=== PATIENT | male | born 1960 | race Two or more races ===

== ENCOUNTER 2024-04-26 18:06 | Emergency (ER) | payer MEDICAID, OTHER ==
[~2024-04-26] VITALS: Ht 172.7 cm; Wt 58.0 kg
[2024-04-26 18:19] VITALS: BP 128/92; RESP 20; O2SAT 98
--- NOTE | 2024-04-26 18:39 | ED.PDOC ---
SOB-HPI HPI Comments 63 y/o M with PMHX of colorectal cancer, HTN, and HLD presents to the ED for CC of shortness of breath. Per patient he has been experiencing episodes of shortness of breath with a non-productive cough x1week. Patient relays, chest pain with deep breaths with associated symptoms of nausea and vomiting. Patient states that he has completed chemotherapy for his colorectal cancer and that it is currently "taking everything out of him". Patient denies fever, chills, body aches, or headache. No other symptoms or modifying factors at this time. Chief Complaint: Shortness of Breath Time Seen by MD: 18:30 Primary Care Provider: YOLANDA Reviewed notes: Nurses Notes, Medications, Allergies Information Source: Patient Mode of Arrival: Wheelchair Severity: Moderate Timing: Weeks Duration: Since onset Context: At Rest PE Risk Factors: None History of: None Prehospital treatment: None Modifying Factors: Nothing Associated Signs and Symptoms: Cough If cough with SOB: Non-Productive Past Medical History PAST MEDICAL HISTORY: Cancer Past Medical History (Other): colorectal cancer Surgical History: Denies all surgeries Family History Family History: Unknown Social History Smoker: Non-Smoker Alcohol: Denies ETOH Use Drugs: Marijuana Lives In: Home Constitutional: reports: weakness; denies: chills, diaphoresis, fatigue, fever, malaise, sweats, others EENTM: denies: blurred vision, double vision, ear bleeding, ear discharge, ear drainage, ear pain, ear ringing, eye pain, eye redness, hearing loss, mouth pain , mouth swelling, nasal discharge, nose bleeding, nose congestion, nose pain, photophobia, tearing, throat pain, throat swelling, voice changes, others Respiratory: reports: cough, shortness of breath; denies: hemoptysis, orthopnea, SOB at rest, SOB with excertion, stridor, wheezing, others Cardiovascular: denies: chest pain, dizzy spells, diaphoresis, Dyspnea on exertion, edema, irregular heart beat, left arm pain, lightheadedness, palpitations, PND, syncope, others Gastrointestinal: reports: nausea, vomiting; denies: abdomen distended, abdominal pain, blood streaked bowels, constipated, diarrhea, dysphagia, d ifficulty swallowing, hematemesis, melena, poor appetite, poor fluid intake, rectal bleeding, rectal pain, others Genitourinary: denies: burning, dysuria, flank pain, frequency, hematuria, incontinence, penile discharge, penile sore, pain, testicle pain, testicle swelling, urgency, others Neurological: denies: dizziness, fainting, headache, left sided numbness, left sided weakness, numbness, paresthesia, pre-existing deficit, right sided numbness, right sided weakness, seizure, speech problems, tingling, tremors, weakness, others Musculoskeletal: denies: back pain, gout, joint pain, joint swelling, muscle pain, muscle stiffness, neck pain, others Integumetry: denies: bruises, change in color, change in hair/nails, dryness, laceration, lesions, lumps, rash, wounds, others Allergic/Immunocompromised: denies: Difficulty Healing, Frequent Infections, Hives, Itching, others Hematologic/Lymphatic: denies: anemia, blood clots, easy bleeding, easy bruising, swollen glands, others Endocrine: denies: excessive hunger, excessive sweating, excessive thirst, excessive urination, flushing, intolerance to cold, intolerance to heat, unexplained weight gain, unexplained weight loss, others Psychiatric: denies: anxiety, bipolar disorder, depression, hopeless, panic disorder, schizophrenia, sleepless, suicidal, others All Other Systems: Reviewed and Negative Physical Exam General Appearance: Cachectic, Moderate Distress HEENT: Normal ENT Inspection, Pharynx Normal, TMs Normal Neck: Full Range of Motion, Non-Tender, Normal, Normal Inspection Respiratory: Chest Non-Tender, Decreased Breath Sounds, No Accessory Muscle Use, Normal Breath Sounds Cardiovascular: No Edema, No JVD, No Murmur, No Gallop, Tachycardia Breast Exam: Deferred Gastrointestinal: No Organomegaly, Non Tender, No Pulsatile Mass, Normal Bowel Sounds, Soft Genitalia: Deferred Pelvic: Deferred Rectal: Deferred Extremities: No calf tenderness, Normal capillary refill, Normal inspection, Normal range of motion, Non-tender, No pedal edema Musculoskeletal : Apperance: Normal Neurologic: Alert, forest examiner II-XII nml as Tested, No Motor Deficits, Normal Affect, Normal Mood, No Sensory Deficits Cerebellar Function: Normal Reflexes: Normal Skin: Dry, Normal Color, Warm Lymphatic: No Adenopathy EKG EKG : Pulse Rate (adult): 120 [place]: Normal Cardiac Rhythm: ST Block: None Hypertrophy: LVH ST: Normal Was a procedure done? Was a procedure done?: No Differential Dx Differential Diagnosis: Bronchitis, Pharyngitis, URI X-Ray, Labs, Meds, VS Vital Signs Date Time Temp Pulse Resp B/P (MAP) Pulse Ox O2 Delivery O2 Flow Rate FiO2 04/26/24 18:47 120 04/26/24 18:24 120 04/26/24 18:19 98.9 117 20 128/92 (104) 98 Lab Test 04/26/24 19:56 04/26/24 18:57 Range/Units Troponin I High Sensitivity Pending 20 </=54 ng/L White Blood Count 15.6 H 4.4-10.8 10^3/uL Red Blood Count 3.69 L 4.5-5.90 10^6/uL Hemoglobin 9.9 L 13.5-17.5 g/dL Hematocrit 31.5 L 41.0-53.0 % Mean Corpuscular Volume 85.3 80.0-100.0 fL Mean Corpuscular Hemoglobin 26.7 L 28.0-32.0 pg Mean Corpuscular Hemoglobin Concent 31.3 L 32.0-36.0 g/dL Red Cell Distribution Width 25.3 H 11.8-14.3 % Platelet Count 177 140-450 10^3/uL Mean Platelet Volume 8.5 6.9-10.8 fL Neutrophils (%) (Auto) 89.1 H 37.0-80.0 % Lymphocytes (%) (Auto) 3.3 L 10.0-50.0 % Monocytes (%) (Auto) 7.3 0.0-12.0 % Eosinophils (%) (Auto) 0.1 0.0-7.0 % Basophils (%) (Auto) 0.2 0.0-2.0 % Neutrophils # (Auto) 13.9 H 1.6-8.6 10 ^3/uL Lymphocytes # (Auto) 0.5 0.4-5.4 10 ^3/uL Monocytes # (Auto) 1.1 0-1.3 10 ^3/uL Eosinophils # (Auto) 0 0-0.8 10 ^3/uL Basophils # (Auto) 0 0-0.2 10 ^3/uL Nucleated Red Blood Cells 0.0 % Platelet Estimate Adequate Anisocytosis (manual) Moderate Sodium Level 132 L 136-145 mmol/L Potassium Level 3.8 3.5-5.1 mmol/L Chloride Level 91 L 98-107 mmol/L Carbon Dioxide Level 27 20-31 mmol/L Anion Gap 14 5-15 Blood Urea Nitrogen 28 H 9-23 mg/dL Creatinine 0.92 0.700-1.30 mg/dL Glomerular Filtration Rate Calc 94 >90 mL/min BUN/Creatinine Ratio 30.4 H 10.0-20.0 Serum Glucose 146 H 74-106 mg/dL Calcium Level 9.5 8.7-10.4 mg/dL B-Type Natriuretic Peptide 39.76 0-100 pg/mL CXR: FINDINGS: Lines and Tubes: None Lungs: Right lower lobe atelectasis or infiltrate. Pleura: No effusion. No pneumothorax. Cardiomediastinal contours: Unremarkable. 5.1 cm soft tissue mass upper lung field paraspinal area may represent infiltrate or irregular aortic knob can not exclude pulmonary mass. Bones: No acute osseous abnormality. IMPRESSION: 1. Atelectasis right base. 2. Consider CT of the chest or follow-up chest x-ray to re-evaluate the upper lobe paraspinal consolidation. This may represent aortic knob. Can not exclude mass lesion if a CT of the chest is obtained consider IV contrast. ATED BY: IAN MEJIA Jr., DO DICTATED DATE/TIME: 04/26/241849 SIGNED BY: IAN MEJIA Jr., SIGNED DATE/TIME: 04/26/241849 CC: The CBC shows an elevated white blood cell count of 15.6 The patient was anemic with a hemoglobin of 9.9 and hematocrit of 31.5 The chemistry panel is within normal limits. The patient's BNP is within normal limits The patient was being admitted at this time. Images Reviewed?: Images reviewed and evaluated by me Time of 1ST Reevaluation: 19:00 Reevaluation 1ST: Unchanged Patient Education/Counseling: Diagnosis, Treatment, Prognosis Family Education/Counseling: Diagnosis, Treatment, Prognosis Departure 1 Departure Time of Disposition: 20:32 Impression: Primary Impression: Generalized weakness Additional Impressions: Failure to thrive Qualified Codes: R62.7 - Adult failure to thrive Colorectal cancer Disposition: ADMITTED INPATIENT Admit to: Tele Condition: Fair Critical Care Note Critical Care Time?: No Stability Stability form required: Yes Unstable for transfer: Telemetry monitoring (Telemetry monitoring required), ED Physician Assesment (Clinical assesment) Heart Score Heart Score: Heart Score Response (Comments) Value History N/A 0 EKG N/A 0 Age N/A 0 Risk Factors N/A 0 Troponin N/A 0 Total 0 I personally scribed for PATRICIA GUERRERO MD ([email or web address]) on 04/26/24 at 18:38. Electronically submitted by Gissel Fleming ([email or web address]). I personally scribed for PATRICIA GUERRERO MD ([email or web address]) on 04/26/24 at 18:47. Electronically submitted by Gissel Fleming ([email or web address]). I personally scribed for PATRICIA GUERRERO MD ([email or web address]) on 04/26/24 at 18:57. Electronically submitted by Gissel Fleming ([email or web address]). PATRICIA GUERRERO MD Apr 26, 2024 18:38
[2024-04-26 18:47] VITALS: PULSE 120
--- NOTE | 2024-04-26 18:53 | DVH ---
CHEST RADIOGRAPH Indication: SOB WEAK Technique: Single frontal view of the chest was obtained Comparison: None FINDINGS: Lines and Tubes: None Lungs: Right lower lobe atelectasis or infiltrate. Pleura: No effusion. No pneumothorax. Cardiomediastinal contours: Unremarkable. 5.1 cm soft tissue mass upper lung field paraspinal area m ay represent infiltrate or irregular aortic knob can not exclude pulmonary mass. Bones: No acute osseous abnormality. IMPRESSION: 1. Atelectasis right base. 2. Consider CT of the chest or follow-up chest x-ray to re-evaluate the upper lobe paraspinal consoli dation. This may represent aortic knob. Can not exclude mass lesion if a CT of the chest is obtained consider IV contrast.
[2024-04-26 19:15] LABS: Basophils # (auto) 0 10 ^3/uL (0-0.2); Basophils % (auto) 0.2 % (0.0-2.0); Eosinophils # (auto) 0 10 ^3/uL (0-0.8); Eosinophils % (auto) 0.1 % (0.0-7.0); Hematocrit 31.5 % (41.0-53.0); Hemoglobin 9.9 g/dL (13.5-17.5); Lymphocytes # (auto) 0.5 10 ^3/uL (0.4-5.4); Lymphocytes % (auto) 3.3 % (10.0-50.0); Mean Corpuscular Hemoglobin 26.7 pg (28.0-32.0); Mean Corpuscular Hgb Conc. 31.3 g/dL (32.0-36.0); Mean Corpuscular Volume 85.3 fL (80.0-100.0); Monocytes # (auto) 1.1 10 ^3/uL (0-1.3); Monocytes % (auto) 7.3 % (0.0-12.0); Neutrophils # (auto) 13.9 10 ^3/uL (1.6-8.6); Neutrophils % (auto) 89.1 % (37.0-80.0); Platelet Count (auto) 177 10^3/uL (140-450); Red Blood Cells 3.69 10^6/uL (4.5-5.90); Red Cell Distribution Width 25.3 % (11.8-14.3); White Blood Cell 15.6 10^3/uL (4.4-10.8)
[2024-04-26 19:42] LABS: Anisocytosis Moderate; Platelet Estimate Adequate
[2024-04-26 19:54] LABS: Anion Gap 14 (5-15); Carbon Dioxide 27 mmol/L (20-31); Potassium 3.8 mmol/L (3.5-5.1)
[2024-04-26 19:55] LABS: Calcium 9.5 mg/dL (8.7-10.4)
[2024-04-26 20:00] LABS: BUN/Creatinine Ratio 30.4 (10.0-20.0)
[2024-04-26 20:01] LABS: Blood Urea Nitrogen 28 mg/dL (9-23); Chloride 91 mmol/L (98-107); Glucose 146 mg/dL (74-106); Sodium 132 mmol/L (136-145)
--- NOTE | 2024-04-28 09:36 | ECG ---
[facility] Test Date: 2024-04-26 Test Time: 18:24:27 Pat Name: TARA POSADA Department: ER Room: Gender: M Char Belt Operator: SWAPNA : 1960 Requested By: PATRICIA GUERRERO Order Number: [id number] Reading MD: Maikel Leach Measurements Intervals [place] Rate: 120 P: 20 MO: 145 QRS: -11 QRSD: 73 T: 164 QT: 354 QTc: 501 Interpretive Statements Sinus tachycardia LVH with secondary repolarization abnormality Prolonged QT interval Electronically Signed On 04-28-2024 17:07:39 PST by Maikel Leach Please click the below link to view image of tracing.
== END 2024-04-27 03:22 | disposition left against medical advice (07) ==
LOC: ER 18:14
DX: R53.1 Weakness (principal); R62.7 Adult failure to thrive; R05.9 Cough, unspecified; R07.9 Chest pain, unspecified; R11.2 Nausea with vomiting, unspecified; R06.02 Shortness of breath; Z85.048 Personal history of other malignant neoplasm of rectum, rectosigmoid junction, and anus; Z68.1 Body mass index [BMI] 19.9 or less, adult
CPT/HCPCS: 36415; 71045; 80048; 83880; 84484; 85025; 93005